=== PATIENT | female | born 1930 | race Caucasian/White ===

== ENCOUNTER → 2020-08-22 | Outpatient (CLI) | payer MEDICARE, OTHER ==
[~2020-08-22] MED LIST: CALCIUM 600 +1 EAC4 PO; ELIQUIS2.5 MG PO; FISH OIL 1,2001 EAC1 PO; LEVOTHYROXINE88 MCG PO; LOPRESSOR 25 MG25 MG PO; MAGOX 400400 MG PO; MICARDIS80 MG PO; NEOMYC-POLYM-DEX5 ML EYELF; NORCO 5-325 TA1 EACH PO; NORVASC 5 MG TAB5 MG PO; ONCE DAILY1 EACH PO; STOOL SOFTENER100 MG PO; THERA-M CAPLET1 EACH PO; VITAMIN D31000 UNIT PO
[2020-08-22 15:49] LABS: HEMOGLOBIN 11.7 gm/dl (12.3-15.3); RED BLOOD COUNT 4.15 M/UL (4.00-5.10); WHITE BLOOD COUNT 7.2 K/UL (4.5-11.0)
== END ==
LOC: CT 08-21 09:30
PROVIDERS: Internal Medicine Hematology & Oncology
DX: C34.2 Malignant neoplasm of middle lobe, bronchus or lung (principal); R30.0 Dysuria; Z87.891 Personal history of nicotine dependence; Z79.899 Other long term (current) drug therapy
CPT/HCPCS: 36415; 71260; 80053; 83615; 83735; 84100; 84439; 84443; 85027; Q9965

== ENCOUNTER → 2021-02-26 | Outpatient (CLI) | payer MEDICARE, OTHER ==
[2021-02-26 11:59] LABS: HEMOGLOBIN 12.3 gm/dl (12.3-15.3); RED BLOOD COUNT 4.5 M/UL (4.00-5.10); WHITE BLOOD COUNT 6.9 K/UL (4.5-11.0)
== END ==
LOC: CT 10:00
PROVIDERS: Internal Medicine Hematology & Oncology
DX: C34.2 Malignant neoplasm of middle lobe, bronchus or lung (principal); R30.0 Dysuria; Z87.891 Personal history of nicotine dependence; Z79.899 Other long term (current) drug therapy; R91.8 Other nonspecific abnormal finding of lung field
CPT/HCPCS: 36415; 71260; 80053; 83615; 85025; Q9967

== ENCOUNTER 2021-10-10 12:39 | Observation (INO) | payer MEDICARE, OTHER ==
[~2021-10-10] VITALS: Ht 170.2 cm; Wt 73.5 kg
[~2021-10-10 12:39] MED LIST changes: +LEVOTHYROXINE112 MCG PO; -LEVOTHYROXINE88 MCG PO; +MICARDIS40 MG PO; -MICARDIS80 MG PO
[2021-10-10 14:14] LABS: HEMOGLOBIN 12.6 gm/dl (12.3-15.3); RED BLOOD COUNT 4.43 M/UL (4.00-5.10); WHITE BLOOD COUNT 8.8 K/UL (4.5-11.0)
[2021-10-11 05:13] LABS: HEMOGLOBIN 11.5 gm/dl (12.3-15.3); WHITE BLOOD COUNT 9.8 K/UL (4.5-11.0)
[2021-10-11 05:18] LABS: RED BLOOD COUNT 3.95 M/UL (4.00-5.10)
[2021-10-11] MEDS ORDERED: FUROSEMIDE20 MG PO (11:00)
[2021-10-12] MEDS ORDERED: HYDROCODON-ACE1 EAC4 PO (13:44)
== END 2021-10-12 16:32 | disposition home or self-care (01) ==
LOC: ER1 12:39 → CCU 17:54 → CDU 17:54 → CCU 17:54
PROVIDERS: Physician Assistant; ADMIT Internal Medicine
DX: S42.291A Other displaced fracture of upper end of right humerus, initial encounter for closed fracture (principal); S72.114A Nondisplaced fracture of greater trochanter of right femur, initial encounter for closed fracture; I12.9 Hypertensive chronic kidney disease with stage 1 through stage 4 chronic kidney disease, or unspecified chronic kidney disease; E11.22 Type 2 diabetes mellitus with diabetic chronic kidney disease; N18.30 Chronic kidney disease, stage 3 unspecified; I48.0 Paroxysmal atrial fibrillation; E03.9 Hypothyroidism, unspecified; W14.XXXA Fall from tree, initial encounter; Y92.009 Unspecified place in unspecified non-institutional (private) residence as the place of occurrence of the external cause; Z85.118 Personal history of other malignant neoplasm of bronchus and lung; Z92.21 Personal history of antineoplastic chemotherapy; Z95.0 Presence of cardiac pacemaker; Z88.1 Allergy status to other antibiotic agents; Z88.0 Allergy status to penicillin; Z88.2 Allergy status to sulfonamides
CPT/HCPCS: 36415; 36600; 71045; 72192; 73030; 73060; 73502; 73552; 80048; 80053; 82550; 82553; 82803; 83735; 84484; 85025; 93005; 96374; 96375; 96376; 97162; 97166; 97530; 97530-GP-CQ; 99285; G0378; J1200; J2270; J2405